=== PATIENT | female | born 1960 | race Caucasian/White ===

== ENCOUNTER 2019-10-21 13:27 | Emergency (ER) | payer OTHER ==
[~2019-10-21] VITALS: Ht 157.5 cm; Wt 50.3 kg
[~2019-10-21 13:27] MED LIST: APAP500 PO; BENTYL 20 MG TA20 M1 PO; GYNODIOL1 MG PO; LORAZEPAM 0.50.5 MG PO; NORCO 5-325 TA1 EACH PO; PREDNISONE 10 M10 M1 PO; PREDNISONE 20 M20 MG PO; PREVACID15 MG PO; PROTONIX40 M2 PO; REGLAN 10 MG TA10 MG PO; ROWASA4 GM/60 ML RC; ZOFRAN ODT4 MG PO; ZOFRAN4 MG PO
[2019-10-21 14:34] LABS: ABSOLUTE NEUTROPHILS 3.4 thou/uL (1.4-8.2); BASOPHILS 0.6 % (0.0-2.0); EOSINOPHILS 0.7 % (0.0-3.0); HEMATOCRIT 39.5 % (37.0-47.0); HEMOGLOBIN 13.3 gm/dL (12.0-15.0); LYMPHOCYTES 33.1 % (24.0-44.0); MCH 31.5 pg (26.0-34.0); MCHC 33.7 g/dL (28.0-37.0); MCV 93.7 fL (80.0-100.0); PLATELET COUNT 289 thou/uL (150-400); POLYS 57.6 % (36.0-66.0); RBC 4.22 mil/uL (4.20-5.00); RDW 15.6 % (10.5-14.5); WBC 5.9 thou/uL (4.0-11.0)
--- NOTE | 2019-10-21 14:38 | EKG ---
[facility] [place] [address] ELECTROCARDIOGRAM REPORT Name: MANISHA SWEET Room #: [facility]#: [id number] Admission: 10/21/19 Attend Phys: Discharge: Date of : 60 Report #: [id number] THIS REPORT FOR: cc: Fredrick Radford MD, Rene P. MD Couchonnal, Luis F. MD ~ THIS REPORT FOR: //name// [facility] ED Test Date: 2019-10-21 Test Time: 13:52:31 Pat Name: MANISHA SWEET Department: Room: Gender: F [employer] Professor: ethan : 1960 Requested By: Demar Harris Order Number: [id number] MD: Gurvinder Boone Measurements Intervals [place] Rate: 77 P: 59 HI: 131 QRS: 70 QRSD: 95 T: 63 QT: 395 QTc: 448 Interpretive Statements Sinus rhythm Low voltage, extremity leads Compared to ECG 02/07/2009 04:54:27 Low QRS voltage now present Sinus bradycardia no longer present Electronically Signed On 10-21-2019 14:36:42 CDT by Gurvinder Boone [email or web address] <ELECTRONICALLY SIGNED> By: Gurvinder Boone MD 10/21/19 1436 1352 1352 Gurvinder Boone MD /EPI
[2019-10-21 14:41] LABS: CALCIUM 8.8 mg/dL (8.5-10.1); CREATININE 0.7 mg/dL (0.6-1.0); MAGNESIUM 2.1 mg/dL (1.8-2.4); POTASSIUM 3.6 mmol/L (3.5-5.1)
[2019-10-21 15:02] LABS: URINE BILIRUBIN NEGATIVE (Negative); URINE BLOOD NEGATIVE (Negative); URINE CLARITY CLEAR; URINE COLOR YELLOW; URINE GLUCOSE-RANDOM* NEGATIVE (Negative); URINE KETONES 1+ (Negative); URINE LEUKOCYTES-REFLEX NEGATIVE (Negative); URINE NITRITE-REFLEX NEGATIVE (Negative); URINE PROTEIN (DIPSTICK) NEGATIVE (Negative); URINE SPECIFIC GRAVITY 1.015 (1.005-1.035); URINE UROBILINOGEN 0.2 E.U./dl (0.2-1.0)
[2019-10-21 18:08] VITALS: BP 118/81
== END 2019-10-21 18:08 | disposition home or self-care (01) ==
LOC: ER 13:27
PROVIDERS: Emergency Medicine
DX: R53.1 Weakness (principal); R20.2 Paresthesia of skin; R20.0 Anesthesia of skin; K21.9 Gastro-esophageal reflux disease without esophagitis; Z59.0 Homelessness; Z90.49 Acquired absence of other specified parts of digestive tract; Z79.899 Other long term (current) drug therapy; Z91.040 Latex allergy status; Z88.2 Allergy status to sulfonamides; Z87.891 Personal history of nicotine dependence